=== PATIENT | male | born 1970 | race Caucasian/White ===

== ENCOUNTER 2020-07-24 13:53 | Inpatient (IN) | payer MEDICARE, MEDICAID ==
[~2020-07-24] VITALS: Ht 182.9 cm; Wt 143.3 kg
--- NOTE | ~2020-07-24 | EMS ---
[address] [address] EMS Patient Care Report Name: DOMINICK BASS Room: [address] IN [facility]#: [id number] Admission: 07/24/20 Attend Phys: Nayely Zaman Discharge: Date of : 72 Report #: [id number] THIS REPORT FOR: //name// Report Transmitted: 07/24/2020 20:03 EMS Care Summary NIYAH ORTIZ Incident [id number] @ 07/24/2020 13:05 Incident Location [address] [place] [address] Patient DOMINICK BASS Male, 49 Years 1970 Patient Address [address] [place] [address] Patient History Chronic Obstructive Pulmonary Disease (COPD),Congestive Heart Failure (CHF),Hypertension (HTN),Pacemaker/AICD,Cancer - Other Cancer Condition, Patient Allergies No known allergies, Patient Medications Furosemide, Chief Complaint Shortness of Breath Disposition Transported No Lights/[place] Dispatch Reason Breathing Problem Transported To [facility] Narrative [facility] WAS DISPATCHED TO A RESIDENCE FOR SHORTNESS OF AIR. [facility] ARRIVED ON SCENE WITHOUT INCIDENT. THE PATIENT WHO GOES BY DOMINICK WAS FOUND ALERT AND ORIENTED IN HIS CHAIR WORKING TO BREATH. DOMINICK STATED THAT HE WAS RELEASED FROM [address] [address] EMS Patient Care Report Name: DOMINICK BASS Room: [address] IN [facility]#: [id number] Admission: 07/24/20 Attend Phys: Nayely Zaman Discharge: Date of : 72 Report #: [id number] THE HOSPITAL AND HE FELT LIKE HIS BREATHING HAS BECOME MORE DIFFICULT OVER THE PAST DAY. DOMINICK ALSO STATED THAT HE HAD REBOUNDING LOWER ABDOMINAL PAIN. DOMINICK WAS ABLE TO WALK TO THE COT WITH ASSISTANCE WHERE THE STRAPS ARE FASTENED AND THE RAILS PLACED IN THE UPRIGHT POSITION. THE COT IS SECURED IN THE BACK OF THE AMBULANCE WITH THE DOORS CLOSED. VITALS AND A 12-LEAD ARE TAKEN VASCULER ACCESS IS OBTAINED. NIYAH Latham BEGAN TRANSPORT. EN ROUTE DOMINICK REST ON THE COT AND STATED THAT HE WAS HAVING AN EASIER TIME BREATHING WITH THE OXYGEN. VITALS ARE MONITORED MEDICAL HISTORY AND ALLERGIES ARE RECEIVED. RADIO REPORT IS GIVEN TO THE HOSPITAL WITH NO QUESTIONS OR ORDERS RECEIVED. NIYAH Latham ARRIVED AT DESTINATION WITHOUT INCIDENT. PATIENT CARE AND REPORT IS GIVEN TO STAFF DOMINICK IS ABLE TO STAND AND PIVOT OVER TO THE BED IN ROOM 7. [facility] CLEAR. SABA RIVERA, EMT-P Initial Vitals @13:26Pain: 04/28, @13:45Pain: 04/28, @13:20SpO2: 89, @13:36SpO2: 99, @13:46SpO2: 97, @13:14 @13:20P: 102,R: 15,BP: 146/79, @13:36P: 82,R: 34,BP: 135/71, @13:46P: 78,R: 24,BP: 136/72, @13:69UsKL6: 26, @13:85UxOA4: 32, @13:74DsNS7: 28, @13:20GCS: 15, @13:36GCS: 15, @13:46GCS: 15, @13:10 @13:23Glucose: 136, Assessments @13:10MENTAL:SKIN:HEENT:LUNG SOUNDS:ABDOMEN:PELVIS//GI:EXTREMITIES:PULSE:NEURO: Impression Chronic obstructive pulmonary disease with (acute) exacerbation Procedures @13:16Other - Medication - 4.000 Liters per Minute (l/min [fluid]) - Nasal CannulaResponse: Improved@13:27Ondansetron - 4.000 Milligrams (mg) - Intravenous (IV)Response: Improved@13:22 cc () Site: Antecubital-LeftResponse: UnchangedSucceeded@13:22 cc () Response: UnchangedSucceeded@13:20Digital respired carbon dioxide monitoring (regime/therapy)Response: UnchangedSucceeded@13:36Digital [place] [address] EMS Patient Care Report Name: DOMINICK BASS Room: [address] IN [facility]#: [id number] Admission: 07/24/20 Attend Phys: Nayely Zaman Discharge: Date of : 72 Report #: [id number] (regime/therapy)Response: UnchangedSucceeded@13:46Digital respired carbon dioxide monitoring (regime/therapy)Response: UnchangedSucceeded@13:1412-Lead ECGResponse: UnchangedSucceeded Timeline 13:04,Call Received 13:04,Dispatch Notified 13:04,Psap Call 13:05,Dispatched 13:05,En Route 13:08,On Scene 13:10,At Patient 13:10,BP: / M,PULSE: ,RR: R,SPO2: Ox,ETCO2: ,BG: ,PAIN: ,GCS: , 13:14,12-Lead ECG,Response: UnchangedSucceeded, 13:14,BP: / M,PULSE: ,RR: R,SPO2: Ox,ETCO2: ,BG: ,PAIN: ,GCS: , 13:16,Other - Medication - 4.000 Liters per Minute (l/min [fluid]) - Nasal Cannula,Response: Improved 13:20,Digital respired carbon dioxide monitoring (regime/therapy),Response: UnchangedSucceeded, 13:20,BP: / M,PULSE: ,RR: R,SPO2: 89 Ox,ETCO2: ,BG: ,PAIN: ,GCS: , 13:20,BP: 146/79 M,PULSE: 102,RR: 15 R,SPO2: Ox,ETCO2: ,BG: ,PAIN: ,GCS: , 13:20,BP: / M,PULSE: ,RR: R,SPO2: Ox,ETCO2: 26 ,BG: ,PAIN: ,GCS: , 13:20,BP: / M,PULSE: ,RR: R,SPO2: Ox,ETCO2: ,BG: ,PAIN: ,GCS: 15, 13:22, cc Site: Antecubital-Left,Response: UnchangedSucceeded, 13:22, cc Site: ,Response: UnchangedSucceeded, 13:23,BP: / M,PULSE: ,RR: R,SPO2: Ox,ETCO2: ,B,PAIN: ,GCS: , 13:26,BP: / M,PULSE: ,RR: R,SPO2: Ox,ETCO2: ,BG: ,PAIN: 7,GCS: , 13:27,Ondansetron - 4.000 Milligrams (mg) - Intravenous (IV),Response: Improved 13:30,Depart Scene 13:36,Digital respired carbon dioxide monitoring (regime/therapy),Response: UnchangedSucceeded, 13:36,BP: / M,PULSE: ,RR: R,SPO2: 99 Ox,ETCO2: ,BG: ,PAIN: ,GCS: , 13:36,BP: 135/71 M,PULSE: 82,RR: 34 R,SPO2: Ox,ETCO2: ,BG: ,PAIN: ,GCS: , 13:36,BP: / M,PULSE: ,RR: R,SPO2: Ox,ETCO2: 32 ,BG: ,PAIN: ,GCS: , 13:36,BP: / M,PULSE: ,RR: R,SPO2: Ox,ETCO2: ,BG: ,PAIN: ,GCS: 15, 13:45,BP: / M,PULSE: ,RR: R,SPO2: Ox,ETCO2: ,BG: ,PAIN: 7,GCS: , 13:46,Digital respired carbon dioxide monitoring (regime/therapy),Response: UnchangedSucceeded, 13:46,BP: / M,PULSE: ,RR: R,SPO2: 97 Ox,ETCO2: ,BG: ,PAIN: ,GCS: , 13:46,BP: 136/72 M,PULSE: 78,RR: 24 R,SPO2: Ox,ETCO2: ,BG: ,PAIN: ,GCS: , 13:46,BP: / M,PULSE: ,RR: R,SPO2: Ox,ETCO2: 28 ,BG: ,PAIN: ,GCS: , 13:46,BP: / M,PULSE: ,RR: R,SPO2: Ox,ETCO2: ,BG: ,PAIN: ,GCS: 15, 13:50,At Destination 14:09,Call Closed Disclaimer [address] [address] EMS Patient Care Report Name: DOMINICK BASS Room: [address] ADM IN .R.#: [id number] Admission: 07/24/20 Attend Phys: Nayely Zaman Discharge: Date of : 72 Report #: [id number] v1.1 Copyright 2020 [employer] This EMS Care Summary contains data elements from the applicable legal record (which may be displayed differently). It is designed to provide pertinent information for the following purposes: continuity of care, clinical quality, and state data reporting. The complete legal record is available to ED staff and administrators of the receiving hospital in [facility]'s Patient Tracker. All data is provided "as is."
[~2020-07-24 13:53] MED LIST: HYDROCODON-ACE1 EAC5; LASIX 20 MG TAB20 MG; LISINOPRIL; [UNRECOGNIZED DRUG - REMARK]
[2020-07-24 14:02] VITALS: BP 130/96
[2020-07-24 14:31] LABS: ABSOLUTE BASOPHILS 0.1 thou/uL (0.0-0.2); ABSOLUTE EOSINOPHILS 0.1 thou/uL (0.0-0.7); ABSOLUTE LYMPHOCYTES 1.1 thou/uL (0.8-5.3); ABSOLUTE MONOCYTES 0.5 thou/uL (0.0-1.2); ABSOLUTE NEUTROPHILS 7.1 thou/uL (1.6-8.1); BASOPHILS 0.9 %; EOSINOPHILS 1.7 %; HEMATOCRIT 41.5 % (42.0-52.0); HEMOGLOBIN 13.8 gm/dL (14.0-18.0); LYMPHOCYTES 11.9 %; MCHC 33.3 g/dL (28.0-37.0); MCV 87.3 fL (80.0-100.0); MONOCYTES 6.1 %; MPV 9.2 fl. (7.2-11.1); NUCLEATED RBCS 0 /100WBC; PLATELET COUNT* 206 thou/uL (150-400); POLYS 79.4 %; RBC 4.76 mil/uL (4.50-6.00); RDW-CV 18.2 % (10.5-14.5); WBC 8.9 thou/uL (4.0-11.0)
[2020-07-24 14:41] LABS: APTT 27.5 Seconds (25.0-31.3); INR 1.2; PROTIME 12.7 Seconds (9.20-11.50)
[2020-07-24 15:30] LABS: CALCIUM 8.8 mg/dL (8.5-10.1); CREATININE 1.1 mg/dL (0.6-1.3); POTASSIUM 4.6 mmol/L (3.5-5.1)
[2020-07-24 15:41] LABS: ALBUMIN 3.5 g/dL (3.4-5.0)
[2020-07-24 18:13] LABS: DIRECT BILIRUBIN 0.8 mg/dL (<0.1-0.3); TOTAL BILIRUBIN 2.1 mg/dL (<0.1-1.0)
[2020-07-24 19:16] VITALS: BP 116/87
[2020-07-24 19:45] VITALS: BP 116/87
[2020-07-25] VITALS (7 sets, daily range): BP systolic 97–117; BP diastolic 65–87
[2020-07-25 04:57] LABS: HEMATOCRIT 37.1 % (42.0-52.0); HEMOGLOBIN 12.5 gm/dL (14.0-18.0); MCHC 33.6 g/dL (28.0-37.0); MCV 86.4 fL (80.0-100.0); MPV 8.7 fl. (7.2-11.1); RBC 4.3 mil/uL (4.50-6.00); RDW-CV 17.7 % (10.5-14.5); WBC 7.4 thou/uL (4.0-11.0)
[2020-07-25 05:10] LABS: CALCIUM 8.6 mg/dL (8.5-10.1); CREATININE 1.2 mg/dL (0.6-1.3); MAGNESIUM 2.1 mg/dL (1.8-2.4); POTASSIUM 4.2 mmol/L (3.5-5.1)
--- NOTE | 2020-07-25 09:32 | EKG ---
[place] [address] ELECTROCARDIOGRAM REPORT Name: DOMINICK BASS Room: [address] ADM IN M.R.#: [id number] Admission: 07/24/20 Attend Phys: Renato Rankin Discharge: Date of : 72 Date of Service: 07/24/20 1400 Report #: [id number] THIS REPORT FOR: //name// [facility] ED Test Date: 2020-07-24 Test Time: 14:00:51 Pat Name: DOMINICK GUADALUPELEONARDO Department: Room: [facility] Gender: M Chip Person: JAILENE : 1970 Requested By: Isidra Mederos Order Number: [id number] MD: Scar Reina Measurements Intervals [place] Rate: 106 P: 57 W[place]: 189 QRS: -23 QRSD: 113 T: 150 QT: 373 QTc: 496 Interpretive Statements Sinus tachycardia Probable left atrial enlargement Low voltage, extremity and precordial leads Anteroseptal infarct, old Nonspecific T abnormalities, inferior leads No previous ECG available for comparison Electronically Signed On 07-25-2020 9:31:56 CDT by Scar Reina [email or web address] <ELECTRONICALLY SIGNED> By: Scar Reina MD, FACC 07/25/20 0931 1400 1400 Scar Reina MD, FACC /EPI
--- NOTE | 2020-07-25 09:34 | EKG ---
[place] [address] ELECTROCARDIOGRAM REPORT Name: DOMINICK BASS Room: [address] ADM IN M.R.#: [id number] Admission: 07/24/20 Attend Phys: Renato Rankin Discharge: Date of : 72 Date of Service: 07/24/20 1624 Report #: [id number] THIS REPORT FOR: //name// [facility] ED Test Date: 2020-07-24 Test Time: 16:24:47 Pat Name: DOMINICK BASS Department: Room: [facility] Gender: M Insurance Coordinator: JAILENE : 1970 Requested By: Isidra Mederos Order Number: [id number] MD: Scar Reina Measurements Intervals [place] Rate: 100 P: 56 [place]: 189 QRS: -24 QRSD: 117 T: 110 QT: 398 QTc: 514 Interpretive Statements Sinus tachycardia nonspecific intraventricular defect Low voltage, extremity leads Compared to ECG 07/24/2020 14:00:51 no change Electronically Signed On 07-25-2020 9:34:14 CDT by Scar Reina [email or web address] <ELECTRONICALLY SIGNED> By: Scar Reina MD, FACC 07/25/20 0934 1624 1624 Scar Reina MD, [facility] /EPI
[2020-07-25 09:40] LABS: CHOLESTEROL 99 mg/dL (<200); HDL CHOLESTEROL 28 mg/dL (>40); LDL CHOLESTEROL 56 mg/dL (<100); SERUM ASSESSMENT Clear; TC:HDL 3.5 Ratio (Not establshd); TRIGLYCERIDE 79 mg/dL (<150); VLDL 16 mg/dL (<40)
--- NOTE | 2020-07-25 10:20 | CON ---
[address] [address] CONSULTATION Name: DOMINICK BASS Room: [address] IN M.R.#: [id number] Admission: 07/24/20 Attend Phys: Nayely Zaman Discharge: Date of : 72 Report #: [id number] THIS REPORT FOR: //name// cc: MERT Michel family physician/PCP MERT - Marilu family physician/PCP ~ THIS REPORT FOR: //name// CC: MERT physician/PCP Renato Rankin DATE OF SERVICE: 07/24/2020 CARDIOLOGY CONSULTATION HISTORY OF PRESENT ILLNESS: The patient is a 49-year-old single white male who I was asked to see in the hospital today after complaining of shortness of breath. Unfortunately, the patient has never been here to [facility] before. He has an extensive past medical history. He has a history of morbid obesity, previously weighed over 500 pounds. He apparently had lap band surgery done over the [place], [place] years ago. He apparently has a history of a nonischemic cardiomyopathy. He had a defibrillator implanted at [facility] 5 years ago. The defibrillator has never gone off. Since that time. He transferred his care to . He was just admitted to [facility] last week for 5 days with shortness of breath and swelling. He was just discharged 5 days ago. However, he continued to be short of breath with edema. His friend drove him to the Emergency Room and he was admitted for further evaluation and treatment. He denies any recent chest pain, fever, or cough. He notes occasional fast heartbeat, but no syncope. PAST MEDICAL HISTORY: He has had a previous fracture of his left femur. He has a history of hypertension. CURRENT MEDICATIONS: Include Lasix, hydrocodone. ALLERGIES: He has no known drug allergies. FAMILY HISTORY: His mother and father had heart disease. SOCIAL HISTORY: , lives with a friend in [place]. He is on disability. He used to drive a tow truck. He quit smoking years ago, used to drink alcohol every day, but no longer abuses alcohol. REVIEW OF SYSTEMS: No history of stroke. He does have a COPD, is on oxygen at home. He uses an inhaler. No history of liver disease, kidney disease, [place] [address] CONSULTATION Name: DOMINICK BASS Room: [address]#: [id number] Admission: 07/24/20 Attend Phys: Nayely Zaman Discharge: Date of : 72 Report #: [id number] PHYSICAL EXAMINATION: GENERAL: Revealed obese, middle-aged male, lying in bed. He appeared in no distress. VITAL SIGNS: He had a blood pressure of 130/80, pulse is 100. He was afebrile. HEENT: He was anicteric. Conjunctivae pink. Mucous membranes moist. NECK: Veins difficult to assess due to obesity. CHEST: Revealed decreased breath sounds at bases. CARDIOVASCULAR: Regular rate and rhythm. No significant murmur. ABDOMEN: Obese. EXTREMITIES: Had severe pitting edema up to the mid tibial area. SKIN: Cool and dry. NEUROLOGIC: Nonfocal. RADIOLOGICAL DATA: ECG on admission showed sinus tachycardia with a left bundle-branch block. His workup in the Emergency Room, he had portable chest x-ray, cardiomegaly, defibrillator in place, vascular congestion, small effusion. LABORATORY DATA: Sodium 133, BUN 16, creatinine 1.0, SGOT 27, SGPT 41. Troponin 0.11. BNP 4492. His urine drug screen positive for methamphetamines. White blood cell count 8.9, hemoglobin 13.8. IMPRESSION AND RECOMMENDATIONS: 1. Acute on chronic systolic heart failure. We will attempt to obtain records from both [facility] and . I am not sure why the patient is not on a beta-kevan, VEENA inhibitor or ARB. I would give Lasix at this time. Consider Aldactone. 2. Previous implantation of defibrillator. No recent discharges. 3. Morbid obesity. Previous lap band surgery. 4. Asthma. The patient uses inhaler. 5. History of alcohol abuse. <ELECTRONICALLY SIGNED> By: Scar Reina MD, FACC 07/25/20 1020 1623 [id number] Reina MD, FACC /nt
[2020-07-26] VITALS: BP 99/61
[2020-07-26 02:06] LABS: HEPATITIS B SURFACE AG Negative (Negative)
[2020-07-26 04:00] VITALS: BP 128/78
[2020-07-26 05:01] LABS: HEMATOCRIT 36.2 % (42.0-52.0); HEMOGLOBIN 12.2 gm/dL (14.0-18.0); MCH 28.8 pg (26.0-34.0); MCHC 33.6 g/dL (28.0-37.0); MCV 85.6 fL (80.0-100.0); MPV 8.7 fl. (7.2-11.1); RBC 4.23 mil/uL (4.50-6.00); RDW-CV 17.6 % (10.5-14.5); WBC 7.4 thou/uL (4.0-11.0)
[2020-07-26 05:17] LABS: CALCIUM 8.2 mg/dL (8.5-10.1); CREATININE 1.2 mg/dL (0.6-1.3); MAGNESIUM 1.9 mg/dL (1.8-2.4); POTASSIUM 3.7 mmol/L (3.5-5.1); TOTAL BILIRUBIN 1.3 mg/dL (<0.1-1.0); TOTAL PROTEIN 7.1 g/dL (6.4-8.2)
[2020-07-26 08:00] VITALS: BP 102/68
[2020-07-26 12:00] VITALS: BP 98/67
[2020-07-26 13:08] LABS: ANA INTERPRETATION Positive (Negative)
[2020-07-26 18:00] VITALS: BP 101/52
[2020-07-26 19:40] VITALS: BP 88/50
[2020-07-27] VITALS (8 sets, daily range): BP systolic 82–180; BP diastolic 46–73
[2020-07-27 05:07] LABS: ABSOLUTE BASOPHILS 0.1 thou/uL (0.0-0.2); ABSOLUTE EOSINOPHILS 0.3 thou/uL (0.0-0.7); ABSOLUTE LYMPHOCYTES 1.2 thou/uL (0.8-5.3); ABSOLUTE MONOCYTES 0.4 thou/uL (0.0-1.2); ABSOLUTE NEUTROPHILS 4.5 thou/uL (1.6-8.1); BASOPHILS 2.2 %; HEMATOCRIT 37.5 % (42.0-52.0); HEMOGLOBIN 12.5 gm/dL (14.0-18.0); LYMPHOCYTES 18.5 %; MCH 28.6 pg (26.0-34.0); MCHC 33.4 g/dL (28.0-37.0); MCV 85.8 fL (80.0-100.0); MONOCYTES 6.5 %; MPV 8.7 fl. (7.2-11.1); NUCLEATED RBCS 0 /100WBC; PLATELET COUNT* 242 thou/uL (150-400); POLYS 68.8 %; RBC 4.37 mil/uL (4.50-6.00); RDW-CV 17.6 % (10.5-14.5); WBC 6.6 thou/uL (4.0-11.0)
[2020-07-27 05:22] LABS: CALCIUM 8.7 mg/dL (8.5-10.1); CREATININE 1.2 mg/dL (0.6-1.3); POTASSIUM 3.6 mmol/L (3.5-5.1)
[2020-07-28] VITALS: BP 119/68
[2020-07-28 04:00] VITALS: BP 104/66
[2020-07-28 06:50] VITALS: BP 98/59
[2020-07-28 08:00] VITALS: BP 102/54
[2020-07-28] MEDS ORDERED: CARVEDILOL3.125 MG PO (13:51)
[2020-07-28] MEDS ORDERED: LEXAPRO5 MG PO (13:51)
[2020-07-28] MEDS ORDERED: ASA81BEC PO (13:51)
[2020-07-28] MEDS ORDERED: SPIRONOLACTONE50 MG PO (13:51)
[2020-07-28] MEDS ORDERED: ENTRESTO 49 MG1 EACH PO (13:51)
[2020-07-28] MEDS ORDERED: DEMADEX20 MG PO (13:51)
[2020-07-28 14:21] VITALS: BP 102/54
[2020-07-28 16:14] VITALS: BP 102/54
== END 2020-07-28 16:12 | disposition home or self-care (01) | DRG 177 ==
LOC: M.ERS 13:53 → M.TBA-ER 19:00 → M.2W 19:00
PROVIDERS: Internal Medicine; Personal Emergency Response Attendant; ADMIT Internal Medicine; ATTEND Internal Medicine
DX: J15.6 Pneumonia due to other Gram-negative bacteria (principal); J96.01 Acute respiratory failure with hypoxia; I21.4 Non-ST elevation (NSTEMI) myocardial infarction; I50.43 Acute on chronic combined systolic (congestive) and diastolic (congestive) heart failure; I47.1 Supraventricular tachycardia; I42.9 Cardiomyopathy, unspecified; Z68.41 Body mass index [BMI] 40.0-44.9, adult; J44.0 Chronic obstructive pulmonary disease with (acute) lower respiratory infection; Z20.828 Contact with and (suspected) exposure to other viral communicable diseases; I48.91 Unspecified atrial fibrillation; I11.0 Hypertensive heart disease with heart failure; G47.33 Obstructive sleep apnea (adult) (pediatric); F12.90 Cannabis use, unspecified, uncomplicated; E66.01 Morbid (severe) obesity due to excess calories; E80.6 Other disorders of bilirubin metabolism; J45.909 Unspecified asthma, uncomplicated; Z95.0 Presence of cardiac pacemaker; Z82.49 Family history of ischemic heart disease and other diseases of the circulatory system; Z79.899 Other long term (current) drug therapy